=== PATIENT | female | born 1975 | race Caucasian/White ===

== ENCOUNTER 2021-05-02 11:07 | Outpatient (CLI) | payer BC | END 2021-05-02 23:59 | disposition home or self-care (01) | LOC: CFH 11:07 | PROVIDERS: ATTEND Internal Medicine | DX: Z12.31 Encounter for screening mammogram for malignant neoplasm of breast (principal); N64.59 Other signs and symptoms in breast; Z98.82 Breast implant status | CPT/HCPCS: 76641; 77067 ==